=== PATIENT | male | born 1945 | race Caucasian/White ===

== ENCOUNTER 2018-04-15 07:56 | Outpatient (CLI) | payer MEDICARE ==
--- NOTE | 2018-04-15 10:26 | CT ---
LOW DOSE NONCONTRAST CT THORAX PULMONARY LUNG SCAN: 04/15/2018 HISTORY: Tobacco abuse. History of smoking for 40 years. COMPARISON: None available. FINDINGS: There are a few scattered pulmonary nodules present within the lung bilaterally. There is a pleural- based pulmonary nodule in the right middle lobe, measuring 5 mm, as well as an additional tiny, appro ximately 4 mm pulmonary nodule in the right middle lobe. A 3 mm pulmonary nodule is seen at the right lung base, as well as an additional approximately 3 mm p ulmonary nodule in the anterior right upper lobe. A single pulmonary nodule is present in the left l piero, located in the left lower lobe, measuring 5 mm. A calcified granuloma is present in the left lower lobe. There are minimal bullous emphysematous changes at the anterior aspect of the right upper lobe. Mild biapical pleural and parenchymal scarring is present. No pleural effusion is seen. Lack of intravenous contrast limits sensitivity for evaluation of the vascular structures and mediast inum, but no definite enlarged lymph nodes are appreciated. Vascular calcifications are seen in the aortic arch and, to a greater extent, involving the coronary arteries. Limited visualized upper abdomen demonstrates a grossly normal, nonenhanced CT appearance. Degenerative changes are seen in the spine. IMPRESSION: 1. Lung-RADS category 2-Scattered pulmonary nodules within the lungs bilaterally, measuring 5 mm or less. Continued annual screening with low dose CT scan in 12 months is recommended unless patient holley s a known neoplasm at which time a 6 month follow up exam is recommended. 2. No significant additional findings within the chest that require followup. 3. Vascular calcifications of the coronary arteries and thoracic aorta. POS: RAGHAV
--- NOTE | 2018-04-15 10:31 | ULT ---
ULTRASOUND ABDOMINAL AORTA: HISTORY: Abdominal aortic aneurysm screening. Z13.5. Z87.891, history of tobacco use. COMPARISON: None. TECHNIQUE: Real-time, duffy-scale, color Doppler, and spectral analysis of the aorta is performed. FINDINGS: The proximal aorta measures up to 2.5 cm. The mid aorta measures up to 1.8 cm. The distal aorta wali sures up to 1.4 cm. The right iliac artery measures up to 1 cm. The left iliac artery measures up t o 1 cm. IMPRESSION: Aortic size as above without aneurysmal dilatation. POS: TPC
== END 2018-04-15 07:57 | disposition home or self-care (01) ==
LOC: CT 07:56
PROVIDERS: ATTEND Family Medicine
DX: Z00.00 Encounter for general adult medical examination without abnormal findings (principal); Z12.2 Encounter for screening for malignant neoplasm of respiratory organs; Z13.6 Encounter for screening for cardiovascular disorders; I25.10 Atherosclerotic heart disease of native coronary artery without angina pectoris; R91.8 Other nonspecific abnormal finding of lung field; Z87.891 Personal history of nicotine dependence
CPT/HCPCS: 76775; G0297

== ENCOUNTER 2018-11-25 13:15 | Outpatient (CLI) | payer MEDICARE ==
--- NOTE | 2018-11-25 14:21 | RAD ---
CERVICAL SPINE 3 VIEWS: Lateral views were obtained with neutral, flexion, and extension positions. INDICATION: Cervical radiculopathy. FINDINGS: Moderate to severe degenerative changes. Loss of disk space with severe hypertrophic changes is note d at C5-6 and C6-7 and C7-T1. Prominent anterior bridging osteophytes with posterior spondylosis is noted at these levels. There is anterolisthesis at C4-5 measured at 3 mm. This does exacerbate slightly with flexion. IMPRESSION: Moderate to severe degenerative changes of the cervical spine as described. POS: BALTAZAR
--- NOTE | 2018-11-25 14:29 | RAD ---
LUMBAR SPINE 3 VIEWS: Lateral views were obtained with neutral, flexion, and extension. HISTORY: Lumbar radiculopathy. FINDINGS: Lumbar vertebrae maintain normal height. Moderate degenerative changes are noted. There is loss of disk space at all levels. Prominent osteophytes are seen from the lumbar vertebrae and there is face t hypertrophy at all levels. No evidence of significant spondylolisthesis. IMPRESSION: Moderate hypertrophic degenerative changes with disk narrowing. POS: C
--- NOTE | 2018-11-25 15:05 | MRI ---
MRI CERVICAL SPINE WITHOUT CONTRAST: HISTORY: Cervical radiculopathy.. COMPARISON: None. FINDINGS: Appropriate T1 marrow signal intensity of the cervical vertebrae. Cervical spine vertebral body heigh t is maintained. There is no fracture. No significant STIR hyperintensity to suggest vertebral body edema or ligamentous injury. There is fluid in the atlantoaxial articulation, at the level of the predental region. Spondylolisthesis: 3.2 mm of anterolisthesis of C2 upon C3. 3 mm of anterolisthesis of C3 upon C4. 4.3 mm anterolisthesis of C4 upon C5. 2.3 mm retrolisthesis of C5 upon C6. 3.7 mm retrolisthesis C6 upon C7. 4.2 mm anterolisthesis of C7 upon T1. Visualized brain parenchyma, cervicomedullary junction, cervical cord and the upper thoracic cord hav e a normal size and signal intensity C2-C3: No significant central canal stenosis. Neural foramina are patent bilaterally. There is right facet hypertrophy. C3-C4: Broad-based disk-osteophyte complex. Mild central canal stenosis. Moderate bilateral foraminal narrowing due to uncovertebral and right greater than left facet hypertrophy. C4-C5: Broad-based disk-osteophyte complex with a central protrusion. Moderate central canal stenosis . Right neural foramen is patent. Mild to moderate left foraminal narrowing. C5-C6: Broad-based disk-osteophyte complex nearly effaces the subarachnoid space. There is flattening of the cervical cord, without cord hyperintensity. Mild to moderate central canal stenosis. Moderate bilateral foraminal narrowing due to uncovertebral hypertrophy. C6-C7: Broad-based disk-osteophyte complex effaces subarachnoid space. Mild to moderate central canal stenosis. Moderate right and severe left foraminal narrowing. C7-T1: No significant central canal stenosis or significant neural foraminal narrowing. IMPRESSION: 1. Multilevel degenerative changes of the cervical spine as detailed above. 2. Spondylolisthesis as detailed above. 3. Abnormal fluid signal intensity involving the anterior atlantoaxial articulation/predental space. Correlate clinically. Transcribed Date/Time: 11/25/2018 3:16 PM
--- NOTE | 2018-11-25 15:40 | MRI ---
MRI OF LUMBAR SPINE PERFORMED WITHOUT CONTRAST ENHANCEMENT: HISTORY: Back and left leg pain. The vertebral bodies are normal in height. There are generalized disk desiccation changes noted. Th ere is moderate disk narrowing at L1-2, L2-3, L3-4, and L4-5. Modic-type changes are also seen at th maia levels. There is no significant paraaortic adenopathy. T2 hyperintense lesions involving both kidneys are mo st likely cysts. T12-L1: Unremarkable. L1-2: There is a left paracentral disk protrusion at this level associated with fairly significant i mpression on the left side of the thecal sac. No significant foraminal narrowing. L2-3: Disk bulge and some posterior osteophytic change associated with a mild degree of canal stenos is. No significant foraminal narrowing. L3-4: There is a severe canal stenosis at this level. There is a disk bulge present. There are fac et hypertrophic changes present. There is mild left and moderate right foraminal narrowing. L4-5: There is a moderately severe canal stenosis at this level with facet and ligamentous hypertrop hic change in conjunction with disk bulge. There is moderate right-sided foraminal narrowing. L5-S1: Degenerative facet changes are seen without significant canal stenosis. There is some mild t o moderate left foraminal stenosis. IMPRESSION: Multilevel areas of canal and foraminal stenosis. POS: TPC
== END 2018-11-25 13:16 | disposition home or self-care (01) ==
LOC: TBSIIMAG 13:15
PROVIDERS: ATTEND Neurological Surgery
DX: M47.26 Other spondylosis with radiculopathy, lumbar region (principal); M51.16 Intervertebral disc disorders with radiculopathy, lumbar region; M48.061 Spinal stenosis, lumbar region without neurogenic claudication; M47.22 Other spondylosis with radiculopathy, cervical region; M43.12 Spondylolisthesis, cervical region
CPT/HCPCS: 72040; 72100; 72141; 72148

== ENCOUNTER 2019-08-09 12:34 | Outpatient (CLI) | payer MEDICARE ==
--- NOTE | 2019-08-09 15:11 | CT ---
CT CHEST WITHOUT CONTRAST: DATE: 08/09/2019. PROVIDED CLINICAL HISTORY: Tobacco abuse. FINDINGS: Comparison 04/15/2018. The heart, pericardium, and great vessels are suboptimally evaluated in the absence of IV contrast ma terial. Vascular calcification including conspicuous coronary calcium is demonstrated. There is no evidence for thoracic lymph node enlargement with limitations in evaluation for hilar adenopathy give n lack of IV contrast. The airway appears patent and of normal caliber. Scattered sub-6 mm noncalcified pulmonary nodules are redemonstrated, without significant change with respect to prior. There is no evidence for a new nodule. No pleural fluid, pleural thickening, or pneumothorax apparent. The visualized portions of the upper abdomen appear unremarkable. The osseous structures demonstrate no concerning lytic or blastic lesions. IMPRESSION: Lung RADS category 2 - benign findings. Continue annual screening. POS: JESSICA
== END 2019-08-09 12:35 | disposition home or self-care (01) ==
LOC: BICCT 12:34
PROVIDERS: ATTEND Family Medicine
DX: Z12.2 Encounter for screening for malignant neoplasm of respiratory organs (principal); Z87.891 Personal history of nicotine dependence
CPT/HCPCS: G0297

== ENCOUNTER 2020-08-16 09:33 | Outpatient (CLI) | payer MEDICARE | END 2020-08-16 09:34 | disposition home or self-care (01) | LOC: BICCT 09:33 | PROVIDERS: ATTEND Family Medicine | DX: Z12.2 Encounter for screening for malignant neoplasm of respiratory organs (principal); Z87.891 Personal history of nicotine dependence | CPT/HCPCS: 71271 ==

== ENCOUNTER 2020-08-25 12:25 | Outpatient (CLI) | payer MEDICARE | END 2020-08-25 12:26 | disposition home or self-care (01) | LOC: TBSIIMAG 12:25 | PROVIDERS: ATTEND Anesthesiology Pain Medicine | DX: M48.02 Spinal stenosis, cervical region (principal); M47.812 Spondylosis without myelopathy or radiculopathy, cervical region | CPT/HCPCS: 72141 ==

== ENCOUNTER 2021-02-01 07:38 | Outpatient (CLI) | payer MEDICARE, OTHER | END 2021-02-01 07:39 | disposition home or self-care (01) | LOC: TBSIIMAG 07:38 | PROVIDERS: ATTEND Family Medicine | DX: M47.26 Other spondylosis with radiculopathy, lumbar region (principal); M51.16 Intervertebral disc disorders with radiculopathy, lumbar region; M47.817 Spondylosis without myelopathy or radiculopathy, lumbosacral region; M48.061 Spinal stenosis, lumbar region without neurogenic claudication | CPT/HCPCS: 72148 ==

== ENCOUNTER 2021-02-03 09:37 | Emergency (ER) | payer MEDICARE, OTHER ==
[2021-02-03] MEDS ORDERED: Ondansetron PF 4 MG/2 ML Vial ONE (10:30)
[2021-02-03] MEDS ORDERED: Morphine 4 MG/ML VIAL ONE (10:30)
[2021-02-03] MEDS ORDERED: Labetalol HCl 100 MG/20 ML VIAL ONE (10:52)
[2021-02-03 10:54] LABS: #Eosinphils 0.1 thou/uL (0.0-0.7); #Lymphocytes 1.4 thou/uL (1.20-3.40); #Monocytes 0.7 thou/uL (0.11-0.59); #Neutrophils 8.5 thou/uL (1.40-6.50); %Basophils 0.4 % (0.0-1.0); %Eosinophils 0.9 % (0.0-10.0); %Lymphocytes 12.9 % (21.0-51.0); %Monocytes 6.5 % (0.0-10.0); %Neutrophils 79.3 % (42.0-75.0); Hemoglobin 16.5 g/dL (14.0-18.0); Mean Corpuscular HGB CONC 34.3 g/dL (32.0-36.0); Mean Corpuscular Hemoglobin 29.9 pg (27.0-31.0); Mean Corpuscular Volume 87.3 fL (78.0-98.0); Mean Platelet Volume 8.4 fL (7.4-10.4); Platelet Count 153 thou/uL (130-400); Red Blood Cell (RBC) Count 5.53 mill/uL (4.70-6.10); White Blood Cell (WBC) Count 10.7 thou/uL (4.8-10.8)
[2021-02-03 11:23] LABS: ALT (SGPT) 18 U/L (8-55); AST (SGOT) 20 U/L (5-34); Albumin 4.1 g/dL (3.4-4.8); Alkaline Phosphatase 53 U/L (40-110); Anion Gap 16 mmol/L (10-20); BUN (Urea Nitrogen) 20 mg/dL (8.4-25.7); Bilirubin, Total 0.5 mg/dL (0.2-1.2); Calc. Creatinine Clearance 0 mL/min (70-130); Calcium 9.2 mg/dL (7.8-10.44); Carbon Dioxide 21 mmol/L (23-31); Chloride 107 mmol/L (98-107); Globulin 3.1 g/dL (2.4-3.5); Glucose 121 mg/dL (83-110); Lipase 20 U/L (8-78); Potassium 4.6 mmol/L (3.5-5.1); Protein, Total 7.2 g/dL (5.8-8.1); Sodium 139 mmol/L (136-145)
[2021-02-03] MEDS ORDERED: Ketorolac Tromethamine 30 MG/ML VIAL ONE (11:39)
[2021-02-03 11:44] LABS: Bacteria/HPF 1+ HPF (None Seen); Bilirubin Negative (Negative); Blood, Urine 3+ (Negative); Clarity Cloudy (Clear); Glucose, Urine (Dipstick) Normal (Negative); Ketone, Urine 10 mg/dL (Negative); Leukocyte Negative Leu/uL (Negative); Nitrite Negative (Negative); Protein, Urine (Dipstick) 20 mg/dL (Neg-Trace); RBC/HPF Greater than 50 HPF (0-3); Specific Gravity, Urine 1.023 (1.002-1.036); Squamous Epithelial 0-3 HPF (0-3); Urobilinogen Normal mg/dL (Less than 2)
== END 2021-02-03 12:15 | disposition home or self-care (01) ==
LOC: ERS 09:37
DX: N13.2 Hydronephrosis with renal and ureteral calculous obstruction (principal); N23 Unspecified renal colic; Z87.891 Personal history of nicotine dependence
CPT/HCPCS: 74176; 80053; 81003; 81015; 83690; 85025; 87086; 96374; 96375; J1885; J2270; J2405

== ENCOUNTER 2021-07-02 08:52 | Outpatient (CLI) | payer MEDICARE, OTHER | END 2021-07-02 08:53 | disposition home or self-care (01) | LOC: TBSIIMAG 08:52 | PROVIDERS: ATTEND Neurological Surgery | DX: M47.22 Other spondylosis with radiculopathy, cervical region (principal); M47.26 Other spondylosis with radiculopathy, lumbar region | CPT/HCPCS: 72050; 72110 ==

== ENCOUNTER 2021-07-02 09:58 | Outpatient (CLI) | payer MEDICARE, OTHER ==
[2021-07-02 11:19] LABS: Hemoglobin 13.8 g/dL (13.5-17.5); Mean Corpuscular HGB CONC 32.6 g/dL (32.0-36.0); Mean Corpuscular Hemoglobin 27.7 pg (27.0-33.0); Mean Corpuscular Volume 84.9 fl (81.2-95.1); Mean Platelet Volume 10.3 fl (7.4-10.4); Platelet Count 163 10x3/uL (150-450); RBC Distribution Width 13.8 % (11.5-14.5); Red Blood Cell (RBC) Count 4.98 10x6/uL (4.32-5.72); White Blood Cell (WBC) Count 4.7 10x3/uL (3.5-10.5)
[2021-07-02 11:23] LABS: PTT 24.8 sec (22.0-33.0); Prothrombin Time 10.8 sec (9.5-12.1)
[2021-07-02 20:30] LABS: SARS-CoV-2 PCR by NAA Not Detected (NotDetected)
== END 2021-07-02 09:59 | disposition home or self-care (01) ==
LOC: LABBT 09:58
PROVIDERS: ATTEND Neurological Surgery
DX: Z01.812 Encounter for preprocedural laboratory examination (principal); M50.221 Other cervical disc displacement at C4-C5 level; G95.20 Unspecified cord compression; Z20.822 Contact with and (suspected) exposure to COVID-19
CPT/HCPCS: 85027; 85610; 85730; U0003; U0005; 72050; 72110

== ENCOUNTER 2021-07-05 09:55 | Day surgery (SDC) | payer MEDICARE, OTHER ==
[2021-07-03 12:28] VITALS: BMI 27.1
[2021-07-05] MEDS ORDERED: Neomycin-Polymyxin 1 ML AMP ONE (11:45)
[2021-07-05] MEDS ORDERED: Thrombin 5000 UNITS/5 ML VIAL ONE (11:45)
[2021-07-05] MEDS ORDERED: fentaNYL Citrate/PF 100 MCG/2 ML SYRINGE ONE ×3 (11:59→14:58)
[2021-07-05] MEDS ORDERED: CEFAZOLIN 2 GM VIAL ONE (12:01)
[2021-07-05] MEDS ORDERED: Sodium Chloride 0.9% 100 ML ONE (12:01)
[2021-07-05] MEDS ORDERED: Glycopyrrolate 0.2 MG/ML 5 ML SYRINGE ONE (12:26)
[2021-07-05] MEDS ORDERED: Ondansetron PF 4 MG/2 ML Vial ONE (12:26)
[2021-07-05] MEDS ORDERED: Dexamethasone 20 MG/5 ML VIAL ONE (12:26)
[2021-07-05] MEDS ORDERED: ePHEDrine 50 MG/ML VIAL ONE (12:26)
[2021-07-05] MEDS ORDERED: PROPOFOL 200 MG/20 ML VIAL ONE (12:26)
[2021-07-05] MEDS ORDERED: Rocuronium Bromide 10 MG/ML (10ML VIAL) ONE (12:26)
[2021-07-05] MEDS ORDERED: Fentanyl 100 MCG/2 ML VIAL ONE ×3 (15:34→16:20)
== END 2021-07-05 17:53 | disposition home or self-care (01) ==
LOC: SDC 09:55
PROVIDERS: ATTEND Neurological Surgery
PROC: 0RG2070 Fusion of 2 or more Cervical Vertebral Joints with Autologous Tissue Substitute, Anterior Approach, Anterior Column, Open Approach (ICD-10-PCS; principal; 2021-07-05)
PROC: 0RG20A0 Fusion of 2 or more Cervical Vertebral Joints with Interbody Fusion Device, Anterior Approach, Anterior Column, Open Approach (ICD-10-PCS; 2021-07-05)
DX: M48.02 Spinal stenosis, cervical region (principal); M43.12 Spondylolisthesis, cervical region; G99.2 Myelopathy in diseases classified elsewhere; E78.00 Pure hypercholesterolemia, unspecified; I10 Essential (primary) hypertension; G89.29 Other chronic pain; Z79.82 Long term (current) use of aspirin; Z79.899 Other long term (current) drug therapy; Z88.8 Allergy status to other drugs, medicaments and biological substances
CPT/HCPCS: 20930; 20936; 22551; 22845; 22853; 76000; C1713 ×3; C1776 ×2; J1100; J2405; J2704; J3010; J3490

== ENCOUNTER 2021-09-10 11:16 | Outpatient (CLI) | payer MEDICARE, OTHER | END 2021-09-10 11:17 | disposition home or self-care (01) | LOC: TBSIIMAG 11:16 | PROVIDERS: ATTEND Neurological Surgery | DX: M43.12 Spondylolisthesis, cervical region (principal); M48.02 Spinal stenosis, cervical region; M47.812 Spondylosis without myelopathy or radiculopathy, cervical region | CPT/HCPCS: 72040 ==

== ENCOUNTER 2021-10-02 13:09 | Outpatient (CLI) | payer MEDICARE, OTHER ==
[2021-10-02 16:11] LABS: Hemoglobin 14.9 g/dL (13.5-17.5); Mean Corpuscular HGB CONC 33.4 g/dL (32.0-36.0); Mean Corpuscular Hemoglobin 27.7 pg (27.0-33.0); Mean Corpuscular Volume 83.1 fl (81.2-95.1); Mean Platelet Volume 10.8 fl (7.4-10.4); Platelet Count 154 10x3/uL (150-450); RBC Distribution Width 13.9 % (11.5-14.5); Red Blood Cell (RBC) Count 5.37 10x6/uL (4.32-5.72); White Blood Cell (WBC) Count 5.1 10x3/uL (3.5-10.5)
[2021-10-02 16:22] LABS: PTT 25.4 sec (22.0-33.0); Prothrombin Time 10.8 sec (9.5-12.1)
[2021-10-02 16:23] LABS: Anion Gap 12 mmol/L (10-20); BUN (Urea Nitrogen) 10 mg/dL (8.4-25.7); Calc. Creatinine Clearance 0 mL/min (70-130); Calcium 8.4 mg/dL (7.8-10.44); Carbon Dioxide 23 mmol/L (23-31); Chloride 110 mmol/L (98-107); Estimated GFR 85; Glucose 87 mg/dL (83-110); Potassium 4.2 mmol/L (3.5-5.1); Sodium 141 mmol/L (136-145)
== END 2021-10-02 13:10 | disposition home or self-care (01) ==
LOC: LABBT 13:09
PROVIDERS: ATTEND Neurological Surgery
DX: Z01.812 Encounter for preprocedural laboratory examination (principal); M48.062 Spinal stenosis, lumbar region with neurogenic claudication; Z20.822 Contact with and (suspected) exposure to COVID-19
CPT/HCPCS: 80048; 85027; 85610; 85730; 87811

== ENCOUNTER 2021-10-05 05:54 | Day surgery (SDC) | payer MEDICARE, OTHER ==
[2021-10-03 14:59] VITALS: BMI 27.1
[2021-10-05] MEDS ORDERED: EPINEPHrine 1 MG/ML AMP ONE (06:11)
[2021-10-05] MEDS ORDERED: Bupivacaine PF 0.5% 30 ML VIAL ONE (06:11)
[2021-10-05] MEDS ORDERED: Neomycin-Polymyxin 1 ML AMP ONE (06:11)
[2021-10-05] MEDS ORDERED: Thrombin 5000 UNITS/5 ML VIAL ONE (06:11)
[2021-10-05] MEDS ORDERED: CEFAZOLIN 2 GM VIAL ONE (06:39)
[2021-10-05] MEDS ORDERED: Sodium Chloride 0.9% 100 ML ONE (06:39)
[2021-10-05] MEDS ORDERED: fentaNYL Citrate/PF 100 MCG/2 ML SYRINGE ONE ×2 (06:46→08:48)
[2021-10-05] MEDS ORDERED: Dexmedetomidine 200 MCG/2 ML VIAL ONE (06:47)
[2021-10-05] MEDS ORDERED: Vecuronium 10 MG VIAL ONE ×2 (06:47→07:02)
[2021-10-05] MEDS ORDERED: Rocuronium Bromide 10 MG/ML (10ML VIAL) ONE (07:02)
[2021-10-05] MEDS ORDERED: PROPOFOL 200 MG/20 ML VIAL ONE (07:02)
[2021-10-05] MEDS ORDERED: Ondansetron PF 4 MG/2 ML Vial ONE (07:02)
[2021-10-05] MEDS ORDERED: Metoclopramide HCl 10 MG/2 ML VIAL ONE (07:02)
[2021-10-05] MEDS ORDERED: ePHEDrine 50 MG/ML VIAL ONE (07:02)
[2021-10-05] MEDS ORDERED: Dexamethasone 20 MG/5 ML VIAL ONE (07:02)
[2021-10-05] MEDS ORDERED: Lidocaine 1% PF 5 ML VIAL ONE ×2 (07:02)
[2021-10-05] MEDS ORDERED: HYDROmorphone 2 MG/ML VIAL ONE (11:06)
[2021-10-05] MEDS ORDERED: HYDROcodone/Acetaminophen 5/325 mg Tablet ONE (15:17)
== END 2021-10-05 15:30 | disposition home or self-care (01) ==
LOC: SDC 05:54
PROVIDERS: ATTEND Neurological Surgery
PROC: 00NY0ZZ Release Lumbar Spinal Cord, Open Approach (ICD-10-PCS; principal; 2021-10-05)
DX: M48.062 Spinal stenosis, lumbar region with neurogenic claudication (principal); E78.00 Pure hypercholesterolemia, unspecified; I10 Essential (primary) hypertension; G89.29 Other chronic pain; Z79.82 Long term (current) use of aspirin; Z79.899 Other long term (current) drug therapy; Z88.8 Allergy status to other drugs, medicaments and biological substances; Z87.891 Personal history of nicotine dependence
CPT/HCPCS: 76000; J0171; J0690; J1100; J1170; J2405; J2704; J2765; J3370; J3490; S0020